=== PATIENT | female | born 1940 | race Caucasian/White ===

== ENCOUNTER 2019-11-14 06:34 | Day surgery (SDC) | payer MEDICARE, BC ==
[2019-11-14] MEDS ORDERED: fentaNYL 100 MCG/2 ML SDV IV ONE (06:35)
[2019-11-14] MEDS ORDERED: Metoclopramide 10 MG/2 ML SDV IVPUSH ONE (06:35)
[2019-11-14] MEDS ORDERED: Propofol 200 MG/20 ML SDV IV ONE (06:35)
[2019-11-14] MEDS ORDERED: Ketorolac 30 MG/ML SDV IVPUSH ONE (06:35)
[2019-11-14] MEDS ORDERED: Sodium Chloride 0.9% 10 ML Syringe FLUSH PRN (06:45)
[2019-11-14] MEDS ORDERED: Lactated Ringers 1,000 ML IV SCH (06:45)
--- NOTE | 2019-11-14 08:30 | PCM.OPNOTE ---
- General Post-Op/Procedure Note Date of Surgery/Procedure: 11/14/19 Operative Procedure(s): flex sigmoidoscopy Findings: normal exam to splenic flexure unable to advance scope beyond that point. Pre Op Diagnosis: + cologuard Post-Op Diagnosis: negative flex sig Anesthesia Technique: MAC Primary Surgeon: Jordin Reynoso Anesthesia Provider: Tiffanie Chowdhury Pathology: none Complications: None Condition: Good Free Text/Narrative:: see dictation
[2019-11-14 10:15] VITALS: BP 158/76; PULSE 56
--- NOTE | 2019-11-14 10:34 | CR ---
INDICATION: Abdominal distention and pain after colonoscopy. ABDOMEN TWO VIEWS: Four images of the abdomen in supine and upright projections revealed no evidence of free air. The large and small bowel are distended with gas, presumably on the basis of colonoscopy. A followup study may be helpful depending upon clinical course. No other organomegaly, mass lesion or pathologic calcifications were identified. Hypertrophic degenerative changes and disk disease are noted at L4-5. IMPRESSION: Distention of the bowel, including the large and small bowel with gas, presumably on the basis of colonoscopy. Followup study may be warranted depending upon clinical course - no free air was seen. MTDD
--- NOTE | 2019-11-14 15:30 | OR ---
DATE OF OPERATION: 11/14/2019 SURGEON: Jordin Reynoso MD PROCEDURES PERFORMED: Flexible sigmoidoscopy to splenic flexure. PREOPERATIVE DIAGNOSIS: Positive Cologuard test. POSTOPERATIVE DIAGNOSIS: Positive Cologuard test. INDICATIONS FOR PROCEDURE: This is a 78-year-old white female who was recently found to have a positive Cologuard. She was offered and accepted colonoscopy to determine if she had a polyp or tumor to explain her findings. DESCRIPTION OF OPERATION: After an excellent IV sedation was administered, digital rectal exam was performed. Flexible colonoscope was inserted and advanced to the splenic flexure. Attempts to advance the scope beyond this point were not successful, despite abdominal wall pressure and repositioning the patient in different orientations. Rather than risk perforation, further attempts to advancing the scope were terminated and the scope was slowly withdrawn. The following findings were noted: Descending colon, unremarkable. Sigmoid, unremarkable. Rectum and anus, unremarkable. We will obtain an air contrast barium enema to clear the remainder of the patient's colon. /[id number] /MODL
== END 2019-11-14 10:40 | disposition home or self-care (01) ==
LOC: FB.SDS 06:34
PROVIDERS: ATTEND Surgery
DX: R19.5 Other fecal abnormalities (principal); I11.0 Hypertensive heart disease with heart failure; I50.20 Unspecified systolic (congestive) heart failure; Z79.899 Other long term (current) drug therapy
CPT/HCPCS: 00811; 45330; 74019; J1885; J2704; J2765; J3010; J7120

== ENCOUNTER 2021-11-03 10:31 | Day surgery (SDC) | payer MEDICARE, BC ==
[~2021-11-03 10:31] MED LIST: Lactated Ringers 1,000 ML IV PRN; Sodium Chloride 0.9% 10 ML Syringe FLUSH PRN
[2021-11-03] MEDS ORDERED: fentaNYL 100 MCG/2 ML SDV IV ONE (10:32)
[2021-11-03] MEDS ORDERED: Midazolam 1 MG/ML 2 ML SDV IV ONE (10:32)
[2021-11-03] MEDS ORDERED: acetaZOLAMIDE 500 MG Cap.ER PO ONE (12:30)
[2021-11-03 12:51] VITALS: BP 114/75; PULSE 69
== END 2021-11-03 13:10 | disposition home or self-care (01) ==
LOC: FB.SDS 10:31
PROVIDERS: ATTEND Ophthalmology
DX: H25.9 Unspecified age-related cataract (principal); I48.0 Paroxysmal atrial fibrillation; I42.8 Other cardiomyopathies; I11.0 Hypertensive heart disease with heart failure; I50.22 Chronic systolic (congestive) heart failure; Z79.01 Long term (current) use of anticoagulants; Z79.899 Other long term (current) drug therapy; Z91.040 Latex allergy status
CPT/HCPCS: 00142; 66984; 67840; 88305; A9270; J2250; J3010; J3490; V2632

== ENCOUNTER 2021-11-17 09:32 | Day surgery (SDC) | payer MEDICARE, BC ==
[2021-11-17] MEDS ORDERED: Midazolam 1 MG/ML 2 ML SDV IV ONE (09:33)
[2021-11-17] MEDS ORDERED: fentaNYL 100 MCG/2 ML SDV IV ONE (09:33)
[2021-11-17] MEDS ORDERED: Sodium Chloride 0.9% 10 ML Syringe FLUSH PRN (10:00)
[2021-11-17] MEDS ORDERED: Lactated Ringers 1,000 ML IV PRN (10:00)
[2021-11-17 13:11] VITALS: BP 156/75; PULSE 60
== END 2021-11-17 13:15 | disposition home or self-care (01) ==
LOC: FB.SDS 09:32
PROVIDERS: ATTEND Ophthalmology
DX: H25.813 Combined forms of age-related cataract, bilateral (principal); H18.453 Nodular corneal degeneration, bilateral; D23.111 Other benign neoplasm of skin of right upper eyelid, including canthus; H04.123 Dry eye syndrome of bilateral lacrimal glands; D75.839 Thrombocytosis, unspecified; I11.0 Hypertensive heart disease with heart failure; I50.9 Heart failure, unspecified; Z79.899 Other long term (current) drug therapy
CPT/HCPCS: 00142-QZ; J2250; J3010; J3490; V2632

== ENCOUNTER 2022-07-03 15:23 | Emergency (ER) | payer MEDICARE, BC ==
[2022-07-03 16:03] LABS: BASOPHILS PERCENT AUTO 0.1 % (0.2-1.5); EOSINOPHILS ABSOLUTE AUTO 0.1 x10-3/uL (0.0-0.8); EOSINOPHILS PERCENT AUTO 0.6 % (0.6-8.1); HEMATOCRIT 32.6 % (34.2-48.2); LYMPHOCYTES ABSOLUTE AUTO 0.9 x10-3/uL (1.0-4.4); MEAN CORPUSCULAR HEMOGLOBIN 33.9 pg (23.9-33.9); MEAN CORPUSCULAR HGB CONC 33.6 g/dL (31.9-34.8); MEAN CORPUSCULAR VOLUME 100.8 fL (76.7-100.5); MEAN PLATELET VOLUME 7.7 fL (7.1-12.4); MONOCYTES ABSOLUTE AUTO 1.3 x10-3/uL (0.3-1.0); NEUTROPHILS ABSOLUTE AUTO 12.4 x10-3/uL (1.5-6.3); NEUTROPHILS PERCENT AUTO 84.3 % (30.8-76.2); PLATELET COUNT,PLT 446 x10(3)uL (151-488); RED BLOOD CELL COUNT 3.24 x10(6)uL (3.60-5.20); RED CELL DISTRIBUTION WIDTH 12.7 % (12.3-16.5); WHITE BLOOD CELL COUNT,WBC 14.7 x10-3/uL (3.0-10.3)
[2022-07-03 16:13] LABS: A/G RATIO 0.8; ALANINE AMINOTRANSFERASE,ALT 28 U/L (12-36); ALBUMIN 2.8 g/dL (3.2-4.6); ALKALINE PHOSPHATASE 105 IU/L (56-112); ASPARTATE AMNIOTRANSFERASE,AST 31 IU/L (5-25); BLOOD UREA NITROGEN,BUN 15 mg/dL (7-18); BUN/CREATININE RATIO 16.7 (9-20); CALCIUM 8.9 mg/dL (8.6-10.2); CARBON DIOXIDE,CO2 27 mmol/L (21-32); CREATININE 0.9 mg/dL (0.55-1.02); ESTIMATED GFR 65 mL/min (>60); GLUCOSE RANDOM 138 mg/dL (80-116); POTASSIUM,K 3.5 mmol/L (3.5-5.3); PROTEIN TOTAL,TP 6.5 g/dL (6.0-8.0)
[2022-07-03 16:14] LABS: CHLORIDE,CL 85 mmol/L (100-110); SODIUM,NA 119 mmol/L (135-145)
[2022-07-03] MEDS ORDERED: Diltiazem 25 MG/5 ML SDV IVPUSH ONE ×2 (16:18→16:50)
[2022-07-03 16:30] VITALS: BP 105/82; PULSE 135
[2022-07-03] MEDS ORDERED: Sodium Chloride 3% 300 ML IV SCH (16:30)
[2022-07-03] MEDS ORDERED: Sodium Chloride 0.9% 10 ML Syringe FLUSH PRN (17:26)
[2022-07-03] MEDS ORDERED: Ondansetron 4 MG/2 ML SDV IVPUSH ONE (17:26)
[2022-07-03] MEDS ORDERED: Sodium Chloride 3% 100 ML IV SCH (18:00)
== END 2022-07-03 18:59 ==
LOC: FB.ED 15:23
DX: J18.9 Pneumonia, unspecified organism (principal); R00.0 Tachycardia, unspecified; I11.0 Hypertensive heart disease with heart failure; I50.9 Heart failure, unspecified; E87.1 Hypo-osmolality and hyponatremia; Z79.01 Long term (current) use of anticoagulants; Z79.899 Other long term (current) drug therapy
CPT/HCPCS: 36415; 80053; 83605; 83735; 84484; 85025; 96361; 96374; 96375; 96376; 99285; J2405; J3490; J7131

== ENCOUNTER 2022-10-17 06:16 | Inpatient (IN) | payer MEDICARE, BC ==
[2022-10-17 07:13] LABS: BASOPHILS PERCENT AUTO 0.3 % (0.2-1.5); EOSINOPHILS ABSOLUTE AUTO 0.1 x10-3/uL (0.0-0.8); EOSINOPHILS PERCENT AUTO 1.7 % (0.6-8.1); HEMATOCRIT 35.2 % (34.2-48.2); LYMPHOCYTES ABSOLUTE AUTO 1.2 x10-3/uL (1.0-4.4); LYMPHOCYTES PERCENT AUTO 16.9 % (18.4-52.1); MEAN CORPUSCULAR HEMOGLOBIN 35.1 pg (23.9-33.9); MEAN CORPUSCULAR HGB CONC 34.2 g/dL (31.9-34.8); MEAN CORPUSCULAR VOLUME 102.5 fL (76.7-100.5); MEAN PLATELET VOLUME 8.2 fL (7.1-12.4); MONOCYTES ABSOLUTE AUTO 0.5 x10-3/uL (0.3-1.0); MONOCYTES PERCENT AUTO 7.3 % (4.4-15.7); NEUTROPHILS ABSOLUTE AUTO 5.3 x10-3/uL (1.5-6.3); NEUTROPHILS PERCENT AUTO 73.8 % (30.8-76.2); PLATELET COUNT,PLT 295 x10(3)uL (151-488); RED BLOOD CELL COUNT 3.43 x10(6)uL (3.60-5.20); RED CELL DISTRIBUTION WIDTH 13.5 % (12.3-16.5); WHITE BLOOD CELL COUNT,WBC 7.2 x10-3/uL (3.0-10.3)
[2022-10-17 07:17] LABS: INR 2.38 (1.00-1.24); PROTHROMBIN TIME 23.9 sec (9.0-11.1)
[2022-10-17 07:22] LABS: A/G RATIO 1.2; ALANINE AMINOTRANSFERASE,ALT 33 U/L (12-36); ALBUMIN 3.7 g/dL (3.2-4.6); ALKALINE PHOSPHATASE 100 IU/L (56-112); ASPARTATE AMNIOTRANSFERASE,AST 31 IU/L (5-25); BILIRUBIN TOTAL 0.9 mg/dL (0.1-1.3); BLOOD UREA NITROGEN,BUN 10 mg/dL (7-18); CALCIUM 8.7 mg/dL (8.6-10.2); CARBON DIOXIDE,CO2 28 mmol/L (21-32); EST CRCL DRUG DOSING (CG) 43.63 mL/min; ESTIMATED GFR 57 mL/min (>60); GLUCOSE RANDOM 104 mg/dL (80-116); MAGNESIUM 1.7 mg/dL (1.8-2.5); POTASSIUM,K 3.5 mmol/L (3.5-5.3); PROTEIN TOTAL,TP 6.7 g/dL (6.0-8.0); SODIUM,NA 123 mmol/L (135-145)
[2022-10-17 07:23] LABS: CHLORIDE,CL 89 mmol/L (100-110)
[2022-10-17] MEDS: Sodium Chloride 0.9% 10 ML Syringe FLUSH PRN ×2 (07:32→08:00)
[2022-10-17] MEDS ORDERED: Furosemide 40 MG/4 ML VIAL IVPUSH ONE (07:48)
[2022-10-17 08:35] LABS: BILIRUBIN,URINE NEGATIVE (NEGATIVE); GLUCOSE,URINE NORMAL (NORMAL); KETONES,URINE NEGATIVE (NEGATIVE); LEUKOCYTE ESTERASE,URINE NEGATIVE (NEGATIVE); NITRITE,URINE NEGATIVE (NEGATIVE); OCCULT BLOOD,URINE NEGATIVE (NEGATIVE); PROTEIN,URINE NEGATIVE (NEGATIVE); UROBILINOGEN,URINE NORMAL (NEGATIVE)
[2022-10-17 08:40] LABS: APPEARANCE,URINE CLEAR (CLEAR); BACTERIA,URINE NOT SEEN (NS); COLOR,URINE YELLOW (YELLOW); RBC,URINE NOT SEEN (0-5); SQUAMOUS EPITHELIAL CELLS,UR RARE (NS,R,O); WBC,URINE 0-5 (0-5)
[2022-10-17] MEDS ORDERED: Warfarin Sliding Scale PO SCH (09:15)
[2022-10-17] MEDS ORDERED: Warfarin 2.5 MG Tab PO SCH (16:00)
[2022-10-17] MEDS: Folic Acid/Vitamin B Complex With C Cap PO SCH (16:50)
[2022-10-17] MEDS ORDERED: Carvedilol 25 MG Tab PO SCH (18:00)
[2022-10-17] MEDS ORDERED: Melatonin 3 MG Tab ONE (20:44)
[2022-10-17] MEDS ORDERED: Melatonin 3 MG Tab PO SCH (21:00)
[2022-10-17] MEDS ORDERED: Hydroxyurea 500 MG Cap PO SCH (21:00)
[2022-10-17] MEDS ORDERED: Non-Formulary Medication 1 Each (Melatonin [Melatonin] 5 MG Tablet) PO SCH (21:00)
[2022-10-18] MEDS ORDERED: Pantoprazole 40 MG Tab.CR PO SCH (06:00)
[2022-10-18 07:13] LABS: BASOPHILS PERCENT AUTO 0.6 % (0.2-1.5); EOSINOPHILS ABSOLUTE AUTO 0.1 x10-3/uL (0.0-0.8); EOSINOPHILS PERCENT AUTO 1.3 % (0.6-8.1); HEMATOCRIT 36.5 % (34.2-48.2); HEMOGLOBIN 12.8 g/dL (11.4-15.5); LYMPHOCYTES PERCENT AUTO 15.8 % (18.4-52.1); MEAN CORPUSCULAR HEMOGLOBIN 35.6 pg (23.9-33.9); MEAN CORPUSCULAR VOLUME 101.7 fL (76.7-100.5); MEAN PLATELET VOLUME 7.8 fL (7.1-12.4); MONOCYTES ABSOLUTE AUTO 0.7 x10-3/uL (0.3-1.0); MONOCYTES PERCENT AUTO 10.3 % (4.4-15.7); NEUTROPHILS ABSOLUTE AUTO 4.6 x10-3/uL (1.5-6.3); PLATELET COUNT,PLT 322 x10(3)uL (151-488); RED BLOOD CELL COUNT 3.59 x10(6)uL (3.60-5.20); RED CELL DISTRIBUTION WIDTH 13.5 % (12.3-16.5); WHITE BLOOD CELL COUNT,WBC 6.4 x10-3/uL (3.0-10.3)
[2022-10-18 07:14] LABS: INR 2.87 (1.00-1.24); PROTHROMBIN TIME 28.6 sec (9.0-11.1)
[2022-10-18 07:17] LABS: BLOOD UREA NITROGEN,BUN 12 mg/dL (7-18); CALCIUM 8.7 mg/dL (8.6-10.2); CARBON DIOXIDE,CO2 30 mmol/L (21-32); CHLORIDE,CL 98 mmol/L (100-110); EST CRCL DRUG DOSING (CG) 43.05 mL/min; ESTIMATED GFR 57 mL/min (>60); GLUCOSE RANDOM 89 mg/dL (80-116); POTASSIUM,K 3.8 mmol/L (3.5-5.3); SODIUM,NA 134 mmol/L (135-145)
[2022-10-18] MEDS: Folic Acid/Vitamin B Complex With C Cap PO SCH (08:30)
[2022-10-18 08:31] VITALS: BP 129/86; PULSE 71
== END 2022-10-18 10:43 | disposition home or self-care (01) | DRG 291 ==
LOC: FB.ED 06:16 → FB.MS 08:06
PROVIDERS: ADMIT Student in an Organized Health Care Education/Training Program; ATTEND Student in an Organized Health Care Education/Training Program
DX: I50.9 Heart failure, unspecified (principal); I11.0 Hypertensive heart disease with heart failure; I50.43 Acute on chronic combined systolic (congestive) and diastolic (congestive) heart failure; I48.91 Unspecified atrial fibrillation; E87.1 Hypo-osmolality and hyponatremia; E86.1 Hypovolemia; I27.20 Pulmonary hypertension, unspecified; Z95.810 Presence of automatic (implantable) cardiac defibrillator; M81.0 Age-related osteoporosis without current pathological fracture; I44.7 Left bundle-branch block, unspecified; I48.0 Paroxysmal atrial fibrillation; D75.839 Thrombocytosis, unspecified; I34.0 Nonrheumatic mitral (valve) insufficiency; E86.0 Dehydration; I42.8 Other cardiomyopathies; D75.89 Other specified diseases of blood and blood-forming organs; D47.3 Essential (hemorrhagic) thrombocythemia; Z15.89 Genetic susceptibility to other disease; Z79.01 Long term (current) use of anticoagulants; Z79.899 Other long term (current) drug therapy; Z99.81 Dependence on supplemental oxygen; Z86.16 Personal history of COVID-19
CPT/HCPCS: 36415; 71045; 80048; 80053; 81001; 83735; 83880; 84484; 85025; 85610; 93005; 93010; 96374; 99222; 99239; 99284; 99285-25; A9270-GY; J1940; J3490

== ENCOUNTER 2022-10-20 03:34 | Emergency (ER) | payer MEDICARE, BC ==
[2022-10-20] MEDS ORDERED: cloNIDine 0.1 MG Tab PO ONE (04:01)
[2022-10-20 04:56] VITALS: BP 130/84; PULSE 75
== END 2022-10-20 04:56 | disposition home or self-care (01) ==
LOC: FB.ED 03:34
DX: I11.0 Hypertensive heart disease with heart failure (principal); I50.9 Heart failure, unspecified; I48.91 Unspecified atrial fibrillation; Z86.16 Personal history of COVID-19; Z79.01 Long term (current) use of anticoagulants; Z79.899 Other long term (current) drug therapy
CPT/HCPCS: 99283; A9270

== ENCOUNTER 2022-11-15 11:44 | Emergency (ER) | payer MEDICARE, BC ==
[2022-11-15] MEDS ORDERED: Nitroglycerin 0.4 MG Tab.SL SL PRN (11:48)
[2022-11-15] MEDS ORDERED: Aspirin 81 MG Tab.Chew PO ONE (11:48)
[2022-11-15] MEDS ORDERED: Diltiazem 25 MG/5 ML SDV IVPUSH ONE (12:06)
[2022-11-15 12:09] LABS: BASOPHILS ABSOLUTE AUTO 0.1 x10-3/uL (0.0-0.1); BASOPHILS PERCENT AUTO 0.7 % (0.2-1.5); EOSINOPHILS ABSOLUTE AUTO 0.1 x10-3/uL (0.0-0.8); EOSINOPHILS PERCENT AUTO 0.9 % (0.6-8.1); HEMATOCRIT 39.9 % (34.2-48.2); HEMOGLOBIN 13.5 g/dL (11.4-15.5); MEAN CORPUSCULAR HEMOGLOBIN 34.6 pg (23.9-33.9); MEAN CORPUSCULAR HGB CONC 33.8 g/dL (31.9-34.8); MEAN CORPUSCULAR VOLUME 102.4 fL (76.7-100.5); MONOCYTES ABSOLUTE AUTO 0.5 x10-3/uL (0.3-1.0); MONOCYTES PERCENT AUTO 5.5 % (4.4-15.7); NEUTROPHILS ABSOLUTE AUTO 7.5 x10-3/uL (1.5-6.3); NEUTROPHILS PERCENT AUTO 81.9 % (30.8-76.2); PLATELET COUNT,PLT 347 x10(3)uL (151-488); RED CELL DISTRIBUTION WIDTH 13.2 % (12.3-16.5); WHITE BLOOD CELL COUNT,WBC 9.1 x10-3/uL (3.0-10.3)
[2022-11-15 12:15] LABS: INR 2.11 (1.00-1.24); PROTHROMBIN TIME 21.2 sec (9.0-11.1)
[2022-11-15 12:18] LABS: PTT,PARTIAL THROMBOPLSTIN TIME 36.8 SECONDS (24.4-33.2)
[2022-11-15] MEDS ORDERED: Sodium Chloride 0.9% 500 ML IV ONE (12:24)
[2022-11-15 12:36] LABS: BLOOD UREA NITROGEN,BUN 19 mg/dL (7-18); BUN/CREATININE RATIO 17.3 (9-20); CALCIUM 8.7 mg/dL (8.6-10.2); CARBON DIOXIDE,CO2 27 mmol/L (21-32); CHLORIDE,CL 100 mmol/L (100-110); CREATININE 1.1 mg/dL (0.55-1.02); ESTIMATED GFR 51 mL/min (>60); GLUCOSE RANDOM 147 mg/dL (80-116); POTASSIUM,K 3.7 mmol/L (3.5-5.3); SODIUM,NA 137 mmol/L (135-145)
[2022-11-15 12:42] LABS: ALANINE AMINOTRANSFERASE,ALT 32 U/L (12-36); ALBUMIN 3.6 g/dL (3.2-4.6); ALKALINE PHOSPHATASE 98 IU/L (56-112); ASPARTATE AMNIOTRANSFERASE,AST 24 IU/L (5-25); BILIRUBIN TOTAL 0.8 mg/dL (0.1-1.3); PROTEIN TOTAL,TP 7.2 g/dL (6.0-8.0)
[2022-11-15 12:49] LABS: TROPONIN I 19.3 pg/mL (4.0-60.3)
[2022-11-15] MEDS ORDERED: Sodium Chloride 0.9% 1,000 ML IV SCH (13:15)
[2022-11-15 14:28] VITALS: BP 128/80; PULSE 60
== END 2022-11-15 14:15 | disposition home or self-care (01) ==
LOC: FB.ED 11:44
DX: R00.2 Palpitations (principal); I10 Essential (primary) hypertension; I48.91 Unspecified atrial fibrillation; Z79.01 Long term (current) use of anticoagulants; Z79.899 Other long term (current) drug therapy; Z86.16 Personal history of COVID-19
CPT/HCPCS: 36415; 71045; 80053; 83880; 84484; 85025; 85610; 85730; 93005; 96374; 99285; J3490; J7030